=== PATIENT | male | born 1955 | race Caucasian/White ===

== ENCOUNTER 2016-05-18 08:43 | Day surgery (SDC) | payer OTHER ==
[~2016-05-18] VITALS: Ht 172.7 cm; Wt 75.2 kg
[2016-05-18] VITALS (8 sets, daily range): BP systolic 85–110; BP diastolic 58–81; PULSE 50–67; TEMP 57–98
[2016-05-18] MEDS ORDERED: PROSCAR 5MG5 MG PO (09:39)
[2016-05-18] MEDS ORDERED: FLOMAX 0.40.4 MG/CAP PO (09:39)
[2016-05-18] MEDS ORDERED: MULTIPLE VITAMI1 TA5 PO (09:40)
== END 2016-05-18 13:35 | disposition home or self-care (01) ==
LOC: SDCO 08:43
DX: Z12.11 Encounter for screening for malignant neoplasm of colon (principal)
CPT/HCPCS: J2250; J2405; J2550; J3010; J7030